=== PATIENT | female | born 1975 | race Two or more races ===

== ENCOUNTER 2018-11-05 20:09 | Inpatient (IN) | payer MEDICARE, MEDICAID ==
[~2018-11-05] VITALS: Ht 162.6 cm; Wt 83.3 kg
[2018-11-05] MEDS ORDERED: ONDANSETRON 2MG/ML, 2ML IVPush ONE (20:30)
[2018-11-05] MEDS ORDERED: SODIUM CHLORIDE FLUSH 10ML SYR IVF ONE (20:30)
[2018-11-05 20:45] LABS: BASOPHILS # (AUTO) 0.05 x10^3/uL (0-0.1); BASOPHILS % (AUTO) 0 % (0-1); EOSINOPHILS # (AUTO) 0.11 x10^3/uL (0-0.4); EOSINOPHILS % (AUTO) 1 % (1-7); LYMPHOCYTES # (AUTO) 2.65 x10^3/uL (1-3.4); LYMPHOCYTES % (AUTO) 20 % (22-44); MD NO; MEAN CORPUSCULAR HEMOGLOBIN 24.9 pg (27.0-34.8); MEAN CORPUSCULAR HGB CONC 33.1 g/dL (32.4-35.8); MEAN CORPUSCULAR VOLUME 75.4 fL (80-100); MEAN PLATELET VOLUME 9.1 fL (7.4-10.4); MONOCYTES # (AUTO) 1.06 x10^3/uL (0.2-0.8); MONOCYTES % (AUTO) 8 % (2-9); NEUTROPHILS # (AUTO) 9.44 x10^3/uL (1.8-6.8); NEUTROPHILS % (AUTO) 71 % (42-75); PH, VENOUS 7.457 pH (7.320-7.420); PLATELET COUNT 473 x10^3/uL (130-400); RED BLOOD COUNT 5.29 x10^6/uL (3.82-5.3); RED CELL DISTRIBUTION WIDTH 16.8 % (9.6-15.2)
[2018-11-05 20:49] LABS: MICROSCOPIC AUTO
[2018-11-05 20:58] LABS: CULTURE INDICATED? NO
[2018-11-05 20:59] LABS: ALANINE AMINOTRANSFERASE 52 U/L (12-78); ALBUMIN 4.3 g/dL (3.4-5.0); ANION GAP 14 mmol/L (5-15); CALCIUM 9.2 mg/dL (8.5-10.1); CHLORIDE 97 mmol/L (98-107); CREATININE 1.03 mg/dL (0.55-1.02); SALICYLATE LEVEL 4.9 mg/dL (2.8-20.0)
[2018-11-05 21:01] LABS: AMPHETAMINE SCREEN, URINE Positive (Negative); BARBITURATE SCREEN, URINE Negative (Negative); BENZODIAZEPINE SCREEN, URINE Negative (Negative); CANNABINOID SCREEN, URINE Negative (Negative); COCAINE SCREEN, URINE Positive (Negative); METHADONE SCREEN, URINE Negative (Negative); OPIATE SCREEN, URINE Negative (Negative)
[2018-11-05 21:04] LABS: ALKALINE PHOSPHATASE 99 U/L (45-117); BILIRUBIN,TOTAL 0.4 mg/dL (0.2-1.0); TOTAL PROTEIN 8.8 g/dL (6.4-8.2); TROPONIN I < 0.015 ng/mL (0.000-0.045)
[2018-11-05 21:10] LABS: ACETAMINOPHEN < 2 mcg/mL (10-30)
--- NOTE | 2018-11-05 21:21 | NUR ---
PT CONT TO MUMBLE TO HERSELF AND WALK OUT OF ROOM WHILE ATTACHED TO IV FLUIDS. PT INSTRUCTED TO STAY ON GURNEY MULTIPLE TIMES SO AVOID FALL.
[2018-11-05] MEDS ORDERED: SODIUM CHLORIDE 0.9% 1,000ML IVBOLUS ONE (21:30)
[2018-11-05 21:48] LABS: ACETONE, SERUM Negative (Negative)
[2018-11-05] MEDS ORDERED: SODIUM CHLORIDE FLUSH 10ML SYR IVF PRN (22:00)
[2018-11-05] MEDS ORDERED: hydrALAzine 20 MG/ML, 1ML IVPush PRN (22:30)
[2018-11-05] MEDS ORDERED: METOCLOPRAMIDE 5 MG/ML, 2ML IVPush PRN (22:30)
[2018-11-05] MEDS: ENOXAPARIN 40 MG/0.4 ML SQ SCH (22:30)
[2018-11-05] MEDS ORDERED: LORazepam 2 MG/ML, 1ML IVPush PRN (22:30)
[2018-11-05 22:50] VITALS: BP 168/92
[2018-11-05] MEDS: SODIUM CHLORIDE 0.9% 1,000 ML IV SCH (22:54)
[2018-11-05 23:32] LABS: HEMOGLOBIN A1C 7.9 % (4.2-6.3)
[2018-11-06 03:17] VITALS: BP 110/72
[2018-11-06 04:33] LABS: BASOPHILS # (AUTO) 0.05 x10^3/uL (0-0.1); BASOPHILS % (AUTO) 1 % (0-1); EOSINOPHILS # (AUTO) 0.21 x10^3/uL (0-0.4); EOSINOPHILS % (AUTO) 2 % (1-7); LYMPHOCYTES # (AUTO) 3.11 x10^3/uL (1-3.4); LYMPHOCYTES % (AUTO) 27 % (22-44); MD NO; MEAN CORPUSCULAR HEMOGLOBIN 25.1 pg (27.0-34.8); MEAN CORPUSCULAR VOLUME 76.1 fL (80-100); MEAN PLATELET VOLUME 9.3 fL (7.4-10.4); MONOCYTES # (AUTO) 1.03 x10^3/uL (0.2-0.8); MONOCYTES % (AUTO) 9 % (2-9); NEUTROPHILS # (AUTO) 7.18 x10^3/uL (1.8-6.8); NEUTROPHILS % (AUTO) 62 % (42-75); PLATELET COUNT 374 x10^3/uL (130-400); RED BLOOD COUNT 4.74 x10^6/uL (3.82-5.3)
[2018-11-06 04:51] LABS: ALBUMIN 3.7 g/dL (3.4-5.0); ANION GAP 7 mmol/L (5-15); CALCIUM 8.3 mg/dL (8.5-10.1); CHLORIDE 103 mmol/L (98-107)
[2018-11-06 04:55] LABS: ALANINE AMINOTRANSFERASE 44 U/L (12-78); ALKALINE PHOSPHATASE 87 U/L (45-117); BILIRUBIN,TOTAL 0.6 mg/dL (0.2-1.0); CREATININE 0.79 mg/dL (0.55-1.02); TOTAL PROTEIN 7.5 g/dL (6.4-8.2)
[2018-11-06 06:49] VITALS: BP 121/70
[2018-11-06] MEDS: INSULIN LISPRO 100 UNITS/ML, PEN SQ-INSULIN SCH ×4 (07:20→21:00)
[2018-11-06] MEDS: SODIUM CHLORIDE 0.9% 1,000 ML IV SCH (08:49)
[2018-11-06] MEDS ORDERED: POTASSIUM CHLORIDE 20 MEQ TAB.ER.PRT PO ONE (09:30)
[2018-11-06] MEDS ORDERED: HALOPERIDOL 5 MG/ML IM PRN (09:30)
[2018-11-06] MEDS: NICOTINE 14MG/24 HR PATCH.TD24 TD SCH ×2 (09:51→14:24)
[2018-11-06] MEDS ORDERED: ENOXAPARIN 30 MG/0.3 ML SQ SCH (10:00)
[2018-11-06] MEDS ORDERED: ONDANSETRON ODT 4 MG PO PRN (10:00)
[2018-11-06 10:37] LABS: THYROID STIMULATING HORMONE 1.53 mIU/L (0.358-3.740)
[2018-11-06 12:07] VITALS: BP 149/98
[2018-11-06] MEDS ORDERED: OLANZAPINE 5 MG TABLET PO ONE (15:25)
[2018-11-06] MEDS ORDERED: ZIPRASIDONE 20 MG INJ IM PRN (15:30)
[2018-11-06] MEDS ORDERED: OLANZAPINE 10 MG TABLET ONE (15:35)
[2018-11-06] MEDS: ACETAMINOPHEN 325 MG TABLET PO PRN (15:39)
[2018-11-06 18:56] VITALS: BP 133/86
[2018-11-06] MEDS: OLANZAPINE 5 MG TABLET PO SCH (21:00)
[2018-11-06] MEDS: ENOXAPARIN 40 MG/0.4 ML SQ SCH (22:30)
[2018-11-07] MEDS: INSULIN LISPRO 100 UNITS/ML, PEN SQ-INSULIN SCH ×4 (07:00→21:00)
[2018-11-07] MEDS: NICOTINE 14MG/24 HR PATCH.TD24 TD SCH (12:54)
[2018-11-07] MEDS: OLANZAPINE 5 MG TABLET PO SCH (21:00)
[2018-11-07] MEDS: ENOXAPARIN 40 MG/0.4 ML SQ SCH (21:00)
[2018-11-08] MEDS: INSULIN LISPRO 100 UNITS/ML, PEN SQ-INSULIN SCH ×4 (07:00→19:55)
[2018-11-08 10:49] VITALS: BP 132/82
[2018-11-08] MEDS: NICOTINE 14MG/24 HR PATCH.TD24 TD SCH (11:51)
[2018-11-08] MEDS: metFORMIN 500 MG TABLET PO SCH (17:20)
[2018-11-08] MEDS: ACETAMINOPHEN 325 MG TABLET PO PRN (17:52)
[2018-11-08] MEDS: OLANZAPINE 5 MG TABLET PO SCH (20:28)
[2018-11-08] MEDS: ENOXAPARIN 40 MG/0.4 ML SQ SCH (21:59)
[2018-11-09] MEDS: INSULIN LISPRO 100 UNITS/ML, PEN SQ-INSULIN SCH ×4 (07:55→20:59)
[2018-11-09 07:57] VITALS: BP 143/87
[2018-11-09] MEDS: metFORMIN 500 MG TABLET PO SCH (07:57)
[2018-11-09] MEDS: NICOTINE 14MG/24 HR PATCH.TD24 TD SCH (10:00)
[2018-11-09] MEDS: ACETAMINOPHEN 325 MG TABLET PO PRN (16:12)
[2018-11-09 19:29] VITALS: BP 104/80
[2018-11-09] MEDS: OLANZAPINE 5 MG TABLET PO SCH (20:15)
[2018-11-10 08:08] VITALS: BP 142/89
[2018-11-10] MEDS: INSULIN LISPRO 100 UNITS/ML, PEN SQ-INSULIN SCH ×4 (08:08→20:42)
[2018-11-10] MEDS: NICOTINE 14MG/24 HR PATCH.TD24 TD SCH ×2 (08:10→08:11)
[2018-11-10 10:58] LABS: BASOPHILS # (AUTO) 0.03 x10^3/uL (0-0.1); BASOPHILS % (AUTO) 0 % (0-1); EOSINOPHILS # (AUTO) 0.12 x10^3/uL (0-0.4); EOSINOPHILS % (AUTO) 2 % (1-7); LYMPHOCYTES % (AUTO) 22 % (22-44); MD NO; MEAN CORPUSCULAR HGB CONC 33.2 g/dL (32.4-35.8); MEAN CORPUSCULAR VOLUME 75.5 fL (80-100); MEAN PLATELET VOLUME 9.1 fL (7.4-10.4); MONOCYTES # (AUTO) 0.53 x10^3/uL (0.2-0.8); MONOCYTES % (AUTO) 7 % (2-9); NEUTROPHILS # (AUTO) 5.57 x10^3/uL (1.8-6.8); NEUTROPHILS % (AUTO) 69 % (42-75); PLATELET COUNT 330 x10^3/uL (130-400); RED BLOOD COUNT 4.84 x10^6/uL (3.82-5.3); RED CELL DISTRIBUTION WIDTH 16.3 % (9.6-15.2)
[2018-11-10 11:01] LABS: ANION GAP 9 mmol/L (5-15); CALCIUM 8.7 mg/dL (8.5-10.1); CHLORIDE 108 mmol/L (98-107); CREATININE 0.71 mg/dL (0.55-1.02)
[2018-11-10] MEDS: ACETAMINOPHEN 325 MG TABLET PO PRN (16:39)
[2018-11-10 20:10] VITALS: BP 134/87
[2018-11-10] MEDS: OLANZAPINE 5 MG TABLET PO SCH (20:36)
[2018-11-11] MEDS: INSULIN LISPRO 100 UNITS/ML, PEN SQ-INSULIN SCH ×4 (07:00→20:04)
[2018-11-11 07:45] VITALS: BP 122/76
[2018-11-11] MEDS: NICOTINE 14MG/24 HR PATCH.TD24 TD SCH (08:06)
[2018-11-11] MEDS: ACETAMINOPHEN 325 MG TABLET PO PRN (14:55)
[2018-11-11] MEDS: metFORMIN 500 MG TABLET PO SCH (16:52)
[2018-11-11 20:00] VITALS: BP 144/90
[2018-11-11] MEDS: OLANZAPINE 5 MG TABLET PO SCH (20:04)
[2018-11-11 20:35] VITALS: BP 135/86
[2018-11-12] MEDS: metFORMIN 500 MG TABLET PO SCH ×2 (07:58→16:40)
[2018-11-12] MEDS: INSULIN LISPRO 100 UNITS/ML, PEN SQ-INSULIN SCH ×2 (07:59→20:33)
[2018-11-12 08:00] VITALS: BP 107/69
[2018-11-12] MEDS: NICOTINE 14MG/24 HR PATCH.TD24 TD SCH (09:00)
[2018-11-12] MEDS: ACETAMINOPHEN 325 MG TABLET PO PRN (15:16)
[2018-11-12 20:00] VITALS: BP 144/90
[2018-11-12] MEDS: OLANZAPINE 5 MG TABLET PO SCH (20:36)
[2018-11-13] MEDS: INSULIN LISPRO 100 UNITS/ML, PEN SQ-INSULIN SCH ×2 (07:30→20:36)
[2018-11-13 07:49] VITALS: BP 132/82
[2018-11-13] MEDS: metFORMIN 500 MG TABLET PO SCH ×2 (08:00→16:17)
[2018-11-13] MEDS: NICOTINE 14MG/24 HR PATCH.TD24 TD SCH (08:20)
[2018-11-13] MEDS: ACETAMINOPHEN 325 MG TABLET PO PRN ×2 (12:59→20:39)
[2018-11-13 20:34] VITALS: BP 132/84
[2018-11-13] MEDS: OLANZAPINE 5 MG TABLET PO SCH (20:39)
[2018-11-14 08:00] VITALS: BP 124/87
[2018-11-14] MEDS: metFORMIN 500 MG TABLET PO SCH ×2 (08:13→17:00)
[2018-11-14] MEDS: NICOTINE 14MG/24 HR PATCH.TD24 TD SCH (08:13)
[2018-11-14] MEDS: INSULIN LISPRO 100 UNITS/ML, PEN SQ-INSULIN SCH ×2 (08:14→20:57)
[2018-11-14] MEDS: ACETAMINOPHEN 325 MG TABLET PO PRN ×2 (13:07→20:43)
[2018-11-14 19:58] VITALS: BP 150/82
[2018-11-14] MEDS: OLANZAPINE 5 MG TABLET PO SCH (20:20)
[2018-11-15 07:45] VITALS: BP 109/77
[2018-11-15] MEDS: INSULIN LISPRO 100 UNITS/ML, PEN SQ-INSULIN SCH ×2 (08:02→20:38)
[2018-11-15] MEDS: metFORMIN 500 MG TABLET PO SCH ×2 (08:04→17:00)
[2018-11-15] MEDS: NICOTINE 14MG/24 HR PATCH.TD24 TD SCH (08:05)
[2018-11-15] MEDS: ACETAMINOPHEN 325 MG TABLET PO PRN ×2 (10:36→20:30)
[2018-11-15 19:33] VITALS: BP 136/89
[2018-11-15] MEDS: OLANZAPINE 5 MG TABLET PO SCH (20:30)
[2018-11-16] MEDS: INSULIN LISPRO 100 UNITS/ML, PEN SQ-INSULIN SCH ×3 (07:30→20:28)
[2018-11-16 07:55] VITALS: BP 149/88
[2018-11-16] MEDS: metFORMIN 500 MG TABLET PO SCH ×2 (08:15→16:55)
[2018-11-16] MEDS: NICOTINE 14MG/24 HR PATCH.TD24 TD SCH (08:40)
[2018-11-16] MEDS: ACETAMINOPHEN 325 MG TABLET PO PRN (16:55)
[2018-11-16 19:11] VITALS: BP 138/76
[2018-11-16] MEDS: OLANZAPINE 5 MG TABLET PO SCH (20:22)
[2018-11-17 07:25] VITALS: BP 152/97
[2018-11-17] MEDS: INSULIN LISPRO 100 UNITS/ML, PEN SQ-INSULIN SCH (07:30)
[2018-11-17] MEDS: metFORMIN 500 MG TABLET PO SCH (08:08)
[2018-11-17] MEDS: NICOTINE 14MG/24 HR PATCH.TD24 TD SCH (08:11)
== END 2018-11-17 10:25 | disposition home or self-care (01) | DRG 91 ==
LOC: EDBD 20:09 → ED 21:12 → EDIP 21:33 → OBSVTOIN 21:33 → INTOOBSV 21:33 → 2N 21:35 → EDIP 22:22 → 3NW 22:22 → 2N 11-07 00:07 → UNDODISIN 11-17 10:25
PROVIDERS: ADMIT Family Medicine; ATTEND Family Medicine
DX: G92 Toxic encephalopathy (principal); R65.11 Systemic inflammatory response syndrome (SIRS) of non-infectious origin with acute organ dysfunction; R11.2 Nausea with vomiting, unspecified; D50.9 Iron deficiency anemia, unspecified; E11.65 Type 2 diabetes mellitus with hyperglycemia; F20.9 Schizophrenia, unspecified; I10 Essential (primary) hypertension; F14.10 Cocaine abuse, uncomplicated; F15.10 Other stimulant abuse, uncomplicated; Z53.21 Procedure and treatment not carried out due to patient leaving prior to being seen by health care provider; Z79.84 Long term (current) use of oral hypoglycemic drugs; Z91.19 Patient's noncompliance with other medical treatment and regimen; Z72.0 Tobacco use; Z75.1 Person awaiting admission to adequate facility elsewhere
CPT/HCPCS: 36415; 70450; 71045; 74018; 80048; 80053; 80307; 80329; 81001; 81025; 82010; 82140; 82803; 82962; 83036; 83735; 84443; 84484; 85025; 93005; G0378; J1650; G0480; J1815; J2765; J7030

== ENCOUNTER 2019-01-31 10:49 | Emergency (ER) | payer MEDICARE, MEDICAID, OTHER ==
[~2019-01-31] VITALS: Ht 160 cm; Wt 79.5 kg
--- NOTE | 2019-01-31 11:14 | NUR ---
PT MUTTERING INCOHERENTLY FOR MOST OF PRIMARY ASSESSMENT. PT IS STATING "I NEED HELP" BUT WHEN QUESTIONED FURTHER ABOUT SYMPTOMS OR WHAT SHE NEEDS HELP WITH SHE STATES THAT SHE "WANTS SOMETHING TO EAT AND DRINK". PT DENYING SOB, CP, N/V/D, SI OR HI. PT HAS WALKED OUT INTO [address] THREE TIME SINCE ARRIVING TO ASK FOR COFFEE, MILK AND SPRITE. RN HAS REQUESTED THAT PT REMAIN IN ROOM. PHLEMBOTOMIST AT BEDSIDE TO OBTAIN BLOODWORK, WCTM.
--- NOTE | 2019-01-31 11:22 | NUR ---
PT GIVEN DIET SPRITE & MILK. PT HAS SINCE BEEN OUT INTO [address]INE [address] TWICE ASKING FOR FOOD. PT AGAIN REQUESTED TO USE HER CALL LIGHT IF SHE NEEDS ANYTHING.
--- NOTE | 2019-01-31 11:27 | NUR ---
PT AGAIN OUT INTO HALLWAY TWICE SINCE LAST NOTE, CALLING "NURSE" INSTEAD OF USING CALL LIGHT, STATING THAT SHE NEEDS FOOD AND MEDS. PT INITALLY STATED THAT SHE DID NOT KNOW WHICH MEDS SHE NEEDED, THEN STATED THAT SHE WANTS SEROQUEL. PT INITIALLY REPORTS NOT KNOWING WHAT DOSE, WHO PRESCRIBED OR WHICH PHARMACY SHE GETS SEROQUEL FROM. PT NOW STATING THAT MD PARKS PRESCRIBED HER SEROQUEL AND SHE TAKES 800MG
[2019-01-31 11:30] LABS: BASOPHILS # (AUTO) 0.04 x10^3/uL (0-0.1); BASOPHILS % (AUTO) 0 % (0-1); EOSINOPHILS # (AUTO) 0.01 x10^3/uL (0-0.4); EOSINOPHILS % (AUTO) 0 % (1-7); LYMPHOCYTES # (AUTO) 1.74 x10^3/uL (1-3.4); LYMPHOCYTES % (AUTO) 16 % (22-44); MD NO; MEAN CORPUSCULAR HEMOGLOBIN 25.4 pg (27.0-34.8); MEAN CORPUSCULAR VOLUME 79.4 fL (80-100); MEAN PLATELET VOLUME 9.3 fL (7.4-10.4); MONOCYTES # (AUTO) 0.82 x10^3/uL (0.2-0.8); MONOCYTES % (AUTO) 7 % (2-9); NEUTROPHILS # (AUTO) 8.41 x10^3/uL (1.8-6.8); NEUTROPHILS % (AUTO) 76 % (42-75); PLATELET COUNT 374 x10^3/uL (130-400); RED BLOOD COUNT 5.69 x10^6/uL (3.82-5.3)
[2019-01-31] MEDS ORDERED: LORazepam 1MG TABLET PO ONE (11:30)
[2019-01-31 11:47] LABS: ALANINE AMINOTRANSFERASE 84 U/L (12-78); ALBUMIN 4.6 g/dL (3.4-5.0); ANION GAP 12 mmol/L (5-15); CALCIUM 9.6 mg/dL (8.5-10.1); CHLORIDE 98 mmol/L (98-107); SALICYLATE LEVEL 2.6 mg/dL (2.8-20.0)
[2019-01-31 11:54] LABS: ALKALINE PHOSPHATASE 119 U/L (45-117); BILIRUBIN,TOTAL 0.4 mg/dL (0.2-1.0); TOTAL PROTEIN 9.4 g/dL (6.4-8.2)
[2019-01-31 11:56] LABS: ACETAMINOPHEN < 2 mcg/mL (10-30)
[2019-01-31] MEDS ORDERED: LORazepam 1MG TABLET ONE (11:57)
--- NOTE | 2019-01-31 12:00 | NUR ---
Pt refusing to stay in bed or in her room, constently walking into the hallway asking for food. RN has explained at length multiple times that we are awaiting labwork to make sure pt does not have any emergent processes that would require pt to be NPO. Pt not receptive to RN expaination of ED process, very rude to RN, cursing at this RN and calling me "stupid bitch" multiple times. Pt to be D/C'ed upon completion of bloodwork.
[2019-01-31 12:12] VITALS: BP 102/88
--- NOTE | 2019-01-31 12:12 | NUR ---
Pt stating "I need help, my stomach is empty" at time of discharge, pt has been given milk and diet sprite and given directions to the coffee cart, caffeteria and near by food establishments. Pt reports no other complaints, ambulating independently in NAD to ED lobby exit.
[2019-02-01] MEDS ORDERED: LISI-167 PO (15:22)
[2019-02-01] MEDS ORDERED: HUM100VI SQ (15:22)
[2019-02-01] MEDS ORDERED: ARIP5TAB13 PO (15:22)
[2019-02-01] MEDS ORDERED: LOXA50CA PO (15:22)
== END 2019-01-31 12:28 | disposition home or self-care (01) ==
LOC: ED 12:15
DX: R44.0 Auditory hallucinations (principal); F15.10 Other stimulant abuse, uncomplicated; Z91.19 Patient's noncompliance with other medical treatment and regimen; E11.9 Type 2 diabetes mellitus without complications
CPT/HCPCS: 36415; 80053; 80307; 85025; 99284

== ENCOUNTER 2019-02-09 10:47 | Inpatient (IN) | payer MEDICARE, MEDICAID ==
[~2019-02-09] VITALS: Ht 165.1 cm; Wt 103.0 kg
[~2019-02-09 10:47] MED LIST: ARIP10TA33 PO; ARIP5TAB13 PO; HUM100IN4 SQ-INSULIN; HUM100VI SQ; LISI-167 PO; LOXA50CA PO
--- NOTE | 2019-02-09 11:24 | NUR ---
Called [facility] and requested medical records and patient date of from VINCE Cuevas. VINCE Cuevas unable to provide any information. Transfered 6 times. Every staff member at [facility] declining to provide patient date of or provide information for pt care.
[2019-02-09 11:26] LABS: MICROSCOPIC NOT IND
[2019-02-09 11:28] LABS: CULTURE INDICATED? NO
--- NOTE | 2019-02-09 11:29 | NUR ---
Called [facility] pharmacy in [facility] and spoke to pharmacy picking technician who provided pt date of . Pt date of provided to admitting.
--- NOTE | 2019-02-09 11:37 | NUR ---
Sent medical record fax request to [facility] requesting patient information.
[2019-02-09 11:41] LABS: AMPHETAMINE SCREEN, URINE Negative (Negative); BARBITURATE SCREEN, URINE Negative (Negative); BENZODIAZEPINE SCREEN, URINE Negative (Negative); CANNABINOID SCREEN, URINE Negative (Negative); COCAINE SCREEN, URINE Negative (Negative); METHADONE SCREEN, URINE Negative (Negative); OPIATE SCREEN, URINE Negative (Negative)
[2019-02-09] MEDS ORDERED: HUM100VI SQ-INSULIN (11:41)
[2019-02-09] MEDS ORDERED: ARIP5TAB13 PO (11:41)
[2019-02-09] MEDS ORDERED: LISI-167 PO (11:41)
--- NOTE | 2019-02-09 11:42 | NUR ---
LATE NOTE ENTRY FOR 110: Pt presents to ED by EMS with [employer] and [facility] team on a legal hold after pt called [employer] three times today, and "several times yesterday" with "slurred speech, inappropriate statements, and refusing to answer questions of paramedics or cooperate with care". Pt uncooperative with ED staff. Pt changed into gown when [employer] officer in room. Pt provided clothing and all personal belongings to [employer] officer, and all belongings (clothing, cell phone, and wallet) were placed in personal belonging bag and locked in ED locker. Pt's home medications secured with pharmacy. Pt is alert, confused, has slurred and rambling speech, has unlabored respirations with even chest rise and fall, and skin is pink, warm, and dry. Pt refusing blood draw. Pt refusing temperature orally or axillary. Room secured for SI/HI precautions. Sitter near doorway in direct line of sight for observation.
--- NOTE | 2019-02-09 12:02 | NUR ---
Pt standing in doorway stating to sitter, "I need fucking water. I am being harrassed." Pt verbally redirect to room. Pt provided water. Branditer remains near doorway in direct line of sight for observation.
--- NOTE | 2019-02-09 13:05 | NUR ---
Pt allowed lab to get blood draw with Katheryn Lynn at bedside.
--- NOTE | 2019-02-09 13:06 | NUR ---
Sitter near doorway in direct line of sight for observation. Room remains secured for SI/HI precautions. No needs expressed at this time.
--- NOTE | 2019-02-09 13:06 | NUR ---
Lunch tray arrived from diet office. Lunch tray provided to pt.
[2019-02-09 13:07] LABS: BASOPHILS # (AUTO) 0.03 x10^3/uL (0-0.1); BASOPHILS % (AUTO) 0 % (0-1); EOSINOPHILS # (AUTO) 0.02 x10^3/uL (0-0.4); EOSINOPHILS % (AUTO) 0 % (1-7); LYMPHOCYTES # (AUTO) 2.83 x10^3/uL (1-3.4); LYMPHOCYTES % (AUTO) 23 % (22-44); MD NO; MEAN CORPUSCULAR HEMOGLOBIN 25.4 pg (27.0-34.8); MEAN CORPUSCULAR HGB CONC 32.5 g/dL (32.4-35.8); MEAN CORPUSCULAR VOLUME 78.1 fL (80-100); MEAN PLATELET VOLUME 9.2 fL (7.4-10.4); MONOCYTES # (AUTO) 1.06 x10^3/uL (0.2-0.8); MONOCYTES % (AUTO) 9 % (2-9); NEUTROPHILS # (AUTO) 8.42 x10^3/uL (1.8-6.8); NEUTROPHILS % (AUTO) 68 % (42-75); PLATELET COUNT 387 x10^3/uL (130-400); RED BLOOD COUNT 5.52 x10^6/uL (3.82-5.3); RED CELL DISTRIBUTION WIDTH 16.4 % (9.6-15.2)
[2019-02-09 13:21] LABS: ACETONE, SERUM Negative (Negative); ALBUMIN 4.3 g/dL (3.4-5.0); CALCIUM 9.5 mg/dL (8.5-10.1); CHLORIDE 100 mmol/L (98-107)
[2019-02-09 13:26] LABS: ALANINE AMINOTRANSFERASE 64 U/L (12-78); ALKALINE PHOSPHATASE 113 U/L (45-117); ANION GAP 8 mmol/L (5-15); BILIRUBIN,TOTAL 0.5 mg/dL (0.2-1.0); TOTAL PROTEIN 9.1 g/dL (6.4-8.2)
[2019-02-09 13:57] LABS: HCT (SEDRATE) 43.1 % (34.6-47.8)
--- NOTE | 2019-02-09 14:00 | NUR ---
RECEIVED REPORT FROM ALONZO Vasquez RN. PT RESTING IN BED IN NAD. PT BEING OBSERVED BY SITTER. PT CALM AND COOPERATIVE.
[2019-02-09] MEDS ORDERED: SODIUM CHLORIDE FLUSH 10ML SYR IVF PRN (14:30)
--- NOTE | 2019-02-09 14:33 | NUR ---
2 BENLD CALLED AND NOTIFIED PT HAS BEEN MEDICALLY CLEARED PER DR. ESTRADA. MANAGER LOCATION FROM [address] [place] [address] TO COME TO EVALUATE PT.
[2019-02-09] MEDS ORDERED: LORazepam 1MG TABLET PO PRN (15:30)
[2019-02-09] MEDS ORDERED: NICOTINE 7 MG/24 HR PATCH.TD24 TD SCH (15:30)
[2019-02-09] MEDS ORDERED: ACETAMINOPHEN 325 MG TABLET PO PRN (15:30)
--- NOTE | 2019-02-09 15:31 | NUR ---
SBAR from Piyush, RN, pt will go into room #261
[2019-02-09] MEDS ORDERED: INSULIN REGULAR 100 UNITS/ML, 3ML VIAL SQ-INSULIN SCH (16:00)
[2019-02-09 16:39] VITALS: BP 102/89
[2019-02-09] MEDS ORDERED: ARIPIPRAZOLE 10 MG TABLET PO ONE (19:00)
[2019-02-09] MEDS ORDERED: INSULIN GLARGINE 100 UNITS/ML, PEN SQ-INSULIN SCH (21:00)
[2019-02-10] MEDS ORDERED: ARIPIPRAZOLE 10 MG TABLET PO SCH (09:00)
[2019-02-10] MEDS ORDERED: LISINOPRIL 10 MG TABLET PO SCH (09:00)
[2019-02-10 17:27] LABS: HEMOGLOBIN A1C 8.1 % (4.2-6.3)
== END 2019-02-09 19:50 | DRG 638 ==
LOC: EDBD → MERGE 10:47 → ED 14:05 → EDIP 14:28 → 2N 15:45
PROVIDERS: ADMIT Internal Medicine; ATTEND Internal Medicine
DX: E11.65 Type 2 diabetes mellitus with hyperglycemia (principal); F20.0 Paranoid schizophrenia; R45.851 Suicidal ideations; D72.829 Elevated white blood cell count, unspecified; F17.200 Nicotine dependence, unspecified, uncomplicated; I10 Essential (primary) hypertension; Z53.20 Procedure and treatment not carried out because of patient's decision for unspecified reasons; Z79.4 Long term (current) use of insulin; Z79.899 Other long term (current) drug therapy
CPT/HCPCS: 36415; 80053; 80307; 81003; 82010; 82140; 82800; 82962; 83036; 83735; 84100; 84443; 84703; 85025; 85651; 86592; 99285; G0378; J1815

== ENCOUNTER 2019-02-10 01:59 | Emergency (ER) | payer MEDICAID, MEDICARE ==
[~2019-02-10] VITALS: Ht 167.6 cm; Wt 82.5 kg
[~2019-02-10 01:59] MED LIST changes: +HUM100VI SQ-INSULIN
--- NOTE | 2019-02-10 02:15 | NUR ---
PT REFUSING TO SPEAK WITH ERMD FOR EVAL.
--- NOTE | 2019-02-10 02:32 | NUR ---
RN SPOKE WITH [facility] PATTERN MAKER BEAU. BEAU STATES THAT THE INTAKE MD DECIDED TO TRANSFER PT DUE TO PT NOT WANTING TO TAKE MEDS FOR DIABETES AND BLOOD SUGAR 210. RN INFORMED BEAU THAT A BLOOD SUGAR OF 210 IS NOT EMERGENT AND THE ER CANNOT MAKE HER TAKE HER MEDS EITHER.
== END 2019-02-10 02:38 | disposition home or self-care (01) ==
LOC: ED 02:13
DX: F22 Delusional disorders (principal); E11.65 Type 2 diabetes mellitus with hyperglycemia; F20.9 Schizophrenia, unspecified; F17.200 Nicotine dependence, unspecified, uncomplicated
CPT/HCPCS: 99283

== ENCOUNTER 2019-02-11 10:03 | Emergency (ER) | payer MEDICARE ==
--- NOTE | 2019-02-11 10:12 | NUR ---
RN IN TO ASSESS PT. PT MADE NO STATEMENTS WHEN QUESTIONED ABOUT HEALTH. PT DID NOT CONFIRM NAME OR . SHORTLY THEREAFER, PT ELOPED FROM ED WITHOUT SIGNING AMA PAPERWORK. PER JYOTSNA, PT CALLS 911 FREQUENTLY AND WHEN THEY ARRIVE, PT REFUSES TO SPEAK. THIS RN WOULD QUESTION THE VALIDITY OF PT REAL NAME AND .
== END 2019-02-11 10:18 | disposition left against medical advice (07) ==
LOC: ED 10:10
DX: H53.8 Other visual disturbances (principal); Z53.1 Procedure and treatment not carried out because of patient's decision for reasons of belief and group pressure